=== PATIENT | female | born 1980 | race Caucasian/White ===

== ENCOUNTER 2018-01-13 09:59 | Emergency (ER) | payer OTHER, MEDICAID ==
[~2018-01-13] VITALS: Ht 177.8 cm; Wt 83.0 kg
[2018-01-13 10:09] VITALS: BP 129/86
[2018-01-13] MEDS ORDERED: ZYRTEC10 M5 PO (10:11)
[2018-01-13] MEDS ORDERED: SYMBICORT160 MCG/4. INH (10:11)
[2018-01-13] MEDS ORDERED: PROTONIX40 M3 PO (10:11)
[2018-01-13] MEDS ORDERED: SINGULAIR 10 MG10 MG PO (10:12)
[2018-01-13] MEDS ORDERED: KEFLEX500 M1 PO (10:17)
[2018-01-13] MEDS ORDERED: TRAMADOL 50 MG50 MG PO (10:38)
== END 2018-01-13 10:43 | disposition home or self-care (01) ==
LOC: M.ERS 09:59
DX: S01.81XA Laceration without foreign body of other part of head, initial encounter (principal); J45.909 Unspecified asthma, uncomplicated; K51.90 Ulcerative colitis, unspecified, without complications; Z88.8 Allergy status to other drugs, medicaments and biological substances; W22.01XA Walked into wall, initial encounter; Y93.89 Activity, other specified; Y92.091 Bathroom in other non-institutional residence as the place of occurrence of the external cause; Y99.8 Other external cause status

== ENCOUNTER 2019-09-27 15:41 | Emergency (ER) | payer OTHER, MEDICAID ==
[~2019-09-27] VITALS: Ht 177.8 cm; Wt 79.4 kg
[~2019-09-27 15:41] MED LIST: KEFLEX500 M1 PO; PROTONIX40 M3 PO; SINGULAIR 10 MG10 MG PO; SYMBICORT160 MCG/4. INH; TRAMADOL 50 MG50 MG PO; ZYRTEC10 M5 PO
[2019-09-27] MEDS ORDERED: MEDROLDOSEPACK PO (16:09)
[2019-09-27] MEDS ORDERED: TESSALON PERLE100 MG PO (16:09)
[2019-09-27] MEDS ORDERED: ZPAK PO (16:09)
[2019-09-27] MEDS ORDERED: PROMETHAZI6.25 MG/5 PO (16:09)
[2019-09-27 16:56] VITALS: BP 129/95
[2019-09-27 17:03] LABS: INFLUENZA A ANTIGEN Negative (Negative); INFLUENZA B ANTIGEN Negative (Negative)
== END 2019-09-27 16:40 | disposition home or self-care (01) ==
LOC: M.ERS 15:41
PROVIDERS: Nurse Practitioner Family
DX: J20.9 Acute bronchitis, unspecified (principal); J45.909 Unspecified asthma, uncomplicated; Z90.710 Acquired absence of both cervix and uterus; Z88.8 Allergy status to other drugs, medicaments and biological substances